=== PATIENT | female | born 1960 | race Caucasian/White ===

== ENCOUNTER 2021-01-07 14:13 | Inpatient (IN) ==
[2021-01-07] MEDS ORDERED: 0.9 % Sodium Chloride 500 ML IVC ONE (14:21)
[2021-01-07] MEDS ORDERED: 0.9 % Sodium Chloride 1,000 ML IVC SCH ×3 (14:30→18:53)
[2021-01-07 14:41] LABS: Basophils # 0.1 K/mcL (0.0-0.2); Basophils % 0.5 %; Eosinophils % 0.2 %; Hematocrit 33.4 % (35.3-44.9); Hemoglobin 11.7 g/dL (11.5-15.4); Immature Granulocytes % 1.9 % (0-4); Lymphocytes # 1.2 K/mcL (0.6-4.6); Lymphocytes % 7.4 %; Mean Corpuscular Hemoglobin 34.8 pg (28.0-33.3); Mean Corpuscular Volume 99.4 fL (83.0-100.0); Mean Platelet Volume 8.5 fL (9.4-12.4); Monocytes # 1.5 K/mcL (0.0-1.3); Monocytes % 9.4 %; Neutrophils # 12.5 K/mcL (1.6-8.9); Platelet Count 153 K/mcL (140-400); Red Blood Count 3.36 M/mcL (3.82-4.97); Red Cell Distribution Width 13.9 % (11.5-14.5); Segmented Neutrophils % 80.6 %; White Blood Count 15.5 K/mcL (4.3-11.1)
[2021-01-07 14:49] LABS: INR 1.6
[2021-01-07] MEDS ORDERED: Lactulose Oral Soln 20 GM/30 ML UDC PO ONE ×2 (14:49→16:00)
[2021-01-07 14:52] LABS: Activated Partial Thrombo Time 39.8 Seconds (26.0-36.0)
[2021-01-07 15:00] LABS: Albumin 3.5 g/dL (3.5-5.7); Albumin/Globulin Ratio 0.9 (1.1-2.2); Bilirubin,Direct 3.8 mg/dL (0.0-0.2); Bilirubin,Indirect 7.1 mg/dL (0.0-1.0); Bilirubin,Total 10.9 mg/dL (0.3-1.0); Calcium 9.6 mg/dL (8.6-10.3); Globulin 3.9 g/dL (2.4-3.5); Magnesium 1.8 mg/dL (1.6-2.6); Potassium 4.5 mEq/L (3.5-5.1); Total Protein 7.4 g/dL (6.4-8.9)
[2021-01-07] MEDS ORDERED: Ondansetron 4 MG/2 ML VIAL IVP ONE (15:37)
[2021-01-07] MEDS ORDERED: Fluticasone Propionate Nasal 50 MCG/SPRAY BOTTLE NS PRN (15:39)
[2021-01-07] MEDS ORDERED: *HR* Glimepiride 2 MG TABLET PO PRN (15:39)
[2021-01-07] MEDS ORDERED: *HR* Dextrose 50 % in Water (Syg) 50 ML SYRINGE IVP PRN (16:05)
[2021-01-07] MEDS ORDERED: Dextrose Gel 15 GM/37.5 ML TUBE PO PRN ×2 (16:05)
[2021-01-07] MEDS ORDERED: D5% in Water 1,000 ML IVC PRN (16:05)
[2021-01-07] MEDS ORDERED: Ondansetron 4 MG/2 ML VIAL IVP PRN (16:13)
[2021-01-07] MEDS: Insulin LISPRO 300 UNITS/3 ML VIAL SUBQ SCH ×2 (20:32→21:49)
[2021-01-07] MEDS: (Bethanechol Chloride [Urecholine] 5 MG Tablet) PO SCH (20:56)
[2021-01-07] MEDS: Apremilast [Otezla] 30 MG Tablet PO SCH (20:56)
[2021-01-08 06:49] LABS: Basophils # 0.1 K/mcL (0.0-0.2); Basophils % 0.6 %; Eosinophils # 0.2 K/mcL (0.0-0.6); Eosinophils % 1.1 %; Hematocrit 27.8 % (35.3-44.9); Hemoglobin 9.8 g/dL (11.5-15.4); Immature Granulocytes % 1.5 % (0-4); Lymphocytes # 1.5 K/mcL (0.6-4.6); Lymphocytes % 10.3 %; Mean Corpuscular HGB Conc 35.3 g/dL (31.6-35.5); Mean Corpuscular Volume 99.3 fL (83.0-100.0); Mean Platelet Volume 8.4 fL (9.4-12.4); Monocytes # 1.8 K/mcL (0.0-1.3); Monocytes % 12.6 %; Platelet Count 116 K/mcL (140-400); Red Cell Distribution Width 13.8 % (11.5-14.5); Segmented Neutrophils % 73.9 %; White Blood Count 14.4 K/mcL (4.3-11.1)
[2021-01-08 06:51] LABS: Neutrophils # 10.6 K/mcL (1.6-8.9)
[2021-01-08 06:59] LABS: INR 1.7; Prothrombin Time 19.2 Seconds (9.4-12.1)
[2021-01-08 07:08] LABS: Calcium 8.9 mg/dL (8.6-10.3); Potassium 4.4 mEq/L (3.5-5.1)
[2021-01-08] MEDS ORDERED: Lactulose Oral Soln 20 GM/30 ML UDC PO SCH (09:00)
[2021-01-08] MEDS: (Calcifediol [Rayaldee] 30 MCG Cap.Sa.24h) PO SCH (09:10)
[2021-01-08] MEDS: Insulin LISPRO 300 UNITS/3 ML VIAL SUBQ SCH ×4 (09:10→21:04)
[2021-01-08] MEDS: Apremilast [Otezla] 30 MG Tablet PO SCH ×2 (09:10→20:56)
[2021-01-08] MEDS: (Bethanechol Chloride [Urecholine] 5 MG Tablet) PO SCH ×3 (09:10→20:56)
[2021-01-08] MEDS ORDERED: Ondansetron 4 MG/2 ML VIAL IVP PRN (09:38)
[2021-01-08] MEDS ORDERED: hydrALAZINE 25 MG TABLET PO PRN (10:40)
[2021-01-08 11:19] LABS: Albumin/Globulin Ratio 0.9 (1.1-2.2); Bilirubin,Direct 3.2 mg/dL (0.0-0.2); Bilirubin,Indirect 4.9 mg/dL (0.0-1.0); Bilirubin,Total 8.1 mg/dL (0.3-1.0); Globulin 3.2 g/dL (2.4-3.5); Total Protein 6.2 g/dL (6.4-8.9)
[2021-01-08] MEDS: Lactulose Oral Soln 20 GM/30 ML UDC PO SCH ×2 (16:18→20:59)
[2021-01-09 03:54] LABS: Basophils # 0.1 K/mcL (0.0-0.2); Basophils % 0.7 %; Eosinophils # 0.1 K/mcL (0.0-0.6); Eosinophils % 0.8 %; Hematocrit 31.2 % (35.3-44.9); Hemoglobin 10.7 g/dL (11.5-15.4); Immature Granulocytes % 1.4 % (0-4); Lymphocytes # 1.7 K/mcL (0.6-4.6); Lymphocytes % 9.9 %; Mean Corpuscular HGB Conc 34.3 g/dL (31.6-35.5); Mean Platelet Volume 9.4 fL (9.4-12.4); Monocytes # 1.7 K/mcL (0.0-1.3); Monocytes % 10.2 %; Platelet Count 112 K/mcL (140-400); Red Blood Count 3.06 M/mcL (3.82-4.97); White Blood Count 16.9 K/mcL (4.3-11.1)
[2021-01-09 05:03] LABS: Albumin 3.1 g/dL (3.5-5.7); Albumin/Globulin Ratio 0.9 (1.1-2.2); Bilirubin,Total 7.8 mg/dL (0.3-1.0); Calcium 9.1 mg/dL (8.6-10.3); Globulin 3.4 g/dL (2.4-3.5); Potassium 5.2 mEq/L (3.5-5.1); Total Protein 6.5 g/dL (6.4-8.9)
[2021-01-09] MEDS ORDERED: SODIUM ZIRCONIUM CYCLOSILICATE 5 GM POWD.PACK PO ONE (06:25)
[2021-01-09] MEDS: Lactulose Oral Soln 20 GM/30 ML UDC PO SCH ×3 (07:54→21:09)
[2021-01-09] MEDS: (Calcifediol [Rayaldee] 30 MCG Cap.Sa.24h) PO SCH (07:55)
[2021-01-09] MEDS: (Bethanechol Chloride [Urecholine] 5 MG Tablet) PO SCH ×3 (07:55→21:10)
[2021-01-09] MEDS: Apremilast [Otezla] 30 MG Tablet PO SCH ×2 (07:55→21:10)
[2021-01-09] MEDS: Insulin LISPRO 300 UNITS/3 ML VIAL SUBQ SCH ×4 (07:57→21:10)
[2021-01-09 09:08] LABS: INR 1.7
[2021-01-09 09:35] LABS: Thyroid Stimulating Hormone 1.767 mcIU/mL (0.340-5.600)
[2021-01-10 07:24] LABS: Basophils # 0.1 K/mcL (0.0-0.2); Basophils % 0.9 %; Eosinophils # 0.2 K/mcL (0.0-0.6); Eosinophils % 1.7 %; Hematocrit 28.4 % (35.3-44.9); Hemoglobin 9.6 g/dL (11.5-15.4); Immature Granulocytes % 1.5 % (0-4); Lymphocytes # 1.9 K/mcL (0.6-4.6); Mean Corpuscular HGB Conc 33.8 g/dL (31.6-35.5); Mean Corpuscular Hemoglobin 34.5 pg (28.0-33.3); Mean Corpuscular Volume 102.2 fL (83.0-100.0); Mean Platelet Volume 8.7 fL (9.4-12.4); Monocytes # 1.6 K/mcL (0.0-1.3); Monocytes % 11.3 %; Platelet Count 114 K/mcL (140-400); Red Blood Count 2.78 M/mcL (3.82-4.97); Red Cell Distribution Width 14.1 % (11.5-14.5); Segmented Neutrophils % 70.6 %; White Blood Count 13.8 K/mcL (4.3-11.1)
[2021-01-10 07:29] LABS: Neutrophils # 9.7 K/mcL (1.6-8.9)
[2021-01-10] MEDS: Lactulose Oral Soln 20 GM/30 ML UDC PO SCH ×3 (07:46→21:40)
[2021-01-10] MEDS: (Bethanechol Chloride [Urecholine] 5 MG Tablet) PO SCH ×3 (07:46→21:36)
[2021-01-10] MEDS: Apremilast [Otezla] 30 MG Tablet PO SCH ×2 (07:46→21:36)
[2021-01-10] MEDS: (Calcifediol [Rayaldee] 30 MCG Cap.Sa.24h) PO SCH (07:46)
[2021-01-10] MEDS: Insulin LISPRO 300 UNITS/3 ML VIAL SUBQ SCH ×4 (07:47→20:37)
[2021-01-10 07:57] LABS: Albumin 2.8 g/dL (3.5-5.7); Albumin/Globulin Ratio 0.9 (1.1-2.2); Bilirubin,Total 7.5 mg/dL (0.3-1.0); Calcium 8.8 mg/dL (8.6-10.3); Globulin 3.1 g/dL (2.4-3.5); Potassium 4.6 mEq/L (3.5-5.1); Total Protein 5.9 g/dL (6.4-8.9)
[2021-01-11 07:03] VITALS: BP 118/73; PULSE 94; RESP 17; TEMP 98.1; O2SAT 100
[2021-01-11 07:23] LABS: Basophils # 0.2 K/mcL (0.0-0.2); Basophils % 1.2 %; Eosinophils # 0.2 K/mcL (0.0-0.6); Eosinophils % 1.7 %; Hematocrit 29.2 % (35.3-44.9); Hemoglobin 9.8 g/dL (11.5-15.4); Immature Granulocytes % 1.9 % (0-4); Lymphocytes # 1.7 K/mcL (0.6-4.6); Lymphocytes % 12.5 %; Mean Corpuscular HGB Conc 33.6 g/dL (31.6-35.5); Mean Corpuscular Hemoglobin 34.5 pg (28.0-33.3); Mean Corpuscular Volume 102.8 fL (83.0-100.0); Mean Platelet Volume 8.9 fL (9.4-12.4); Monocytes # 1.6 K/mcL (0.0-1.3); Monocytes % 11.5 %; Neutrophils # 9.9 K/mcL (1.6-8.9); Platelet Count 115 K/mcL (140-400); Red Blood Count 2.84 M/mcL (3.82-4.97); Red Cell Distribution Width 14.1 % (11.5-14.5); Segmented Neutrophils % 71.2 %; White Blood Count 13.9 K/mcL (4.3-11.1)
[2021-01-11 07:41] LABS: Albumin 2.9 g/dL (3.5-5.7); Albumin/Globulin Ratio 0.9 (1.1-2.2); Bilirubin,Total 7.2 mg/dL (0.3-1.0); Calcium 8.8 mg/dL (8.6-10.3); Globulin 3.2 g/dL (2.4-3.5); Potassium 4.6 mEq/L (3.5-5.1); Total Protein 6.1 g/dL (6.4-8.9)
[2021-01-11] MEDS: Lactulose Oral Soln 20 GM/30 ML UDC PO SCH (07:57)
[2021-01-11] MEDS: Apremilast [Otezla] 30 MG Tablet PO SCH (07:58)
[2021-01-11] MEDS: (Calcifediol [Rayaldee] 30 MCG Cap.Sa.24h) PO SCH (07:58)
[2021-01-11] MEDS: (Bethanechol Chloride [Urecholine] 5 MG Tablet) PO SCH (07:58)
[2021-01-11] MEDS: Insulin LISPRO 300 UNITS/3 ML VIAL SUBQ SCH (09:35)
== END 2021-01-11 11:57 | disposition home or self-care (01) | DRG 641 ==
LOC: INPPIK 14:13 → EMEROOPIK 14:13 → OBSVTOIN 19:05 → INPPIK 20:26
PROVIDERS: ADMIT Internal Medicine; ATTEND Internal Medicine

== ENCOUNTER 2021-05-25 17:08 | Observation (INO) ==
[2021-05-25] MEDS ORDERED: 0.9 % Sodium Chloride 1,000 ML IVC SCH (17:30)
[2021-05-25 17:59] LABS: Basophils # 0.1 K/mcL (0.0-0.2); Basophils % 0.8 %; Eosinophils # 0.2 K/mcL (0.0-0.6); Eosinophils % 1.2 %; Hematocrit 26.2 % (35.3-44.9); Hemoglobin 8.9 g/dL (11.5-15.4); Immature Granulocytes % 2.7 % (0-4); Lymphocytes # 1.9 K/mcL (0.6-4.6); Lymphocytes % 12.7 %; Mean Corpuscular Hemoglobin 31.4 pg (28.0-33.3); Mean Corpuscular Volume 92.6 fL (83.0-100.0); Mean Platelet Volume 8.4 fL (9.4-12.4); Monocytes % 13.3 %; Neutrophils # 10.2 K/mcL (1.6-8.9); Platelet Count 136 K/mcL (140-400); Red Blood Count 2.83 M/mcL (3.82-4.97); Red Cell Distribution Width 14.6 % (11.5-14.5); Segmented Neutrophils % 69.3 %; White Blood Count 14.7 K/mcL (4.3-11.1)
[2021-05-25 18:13] LABS: INR 1.7; Prothrombin Time 18.7 Seconds (9.4-12.1)
[2021-05-25 18:15] LABS: Activated Partial Thrombo Time 37.6 Seconds (26.0-36.0); Bilirubin,Indirect 4.8 mg/dL (0.0-1.0); Bilirubin,Total 7.8 mg/dL (0.3-1.0); Calcium 8.9 mg/dL (8.6-10.3); Globulin 3.1 g/dL (2.4-3.5); Potassium 4.8 mEq/L (3.5-5.1); Total Protein 6.1 g/dL (6.4-8.9)
[2021-05-25] MEDS ORDERED: hydrALAZINE 25 MG TABLET PO PRN (18:32)
[2021-05-25] MEDS ORDERED: Naloxone 0.4 MG/ML INJ IVP PRN (18:32)
[2021-05-25] MEDS ORDERED: Fluticasone Propionate Nasal 50 MCG/SPRAY BOTTLE NS PRN (18:32)
[2021-05-25] MEDS: Lactulose Oral Soln 20 GM/30 ML UDC PO SCH (22:55)
[2021-05-26 02:20] VITALS: TEMP 97.9
[2021-05-26 06:38] LABS: Basophils # 0.1 K/mcL (0.0-0.2); Eosinophils # 0.2 K/mcL (0.0-0.6); Eosinophils % 1.9 %; Hematocrit 22.8 % (35.3-44.9); Hemoglobin 7.6 g/dL (11.5-15.4); Immature Granulocytes % 2.3 % (0-4); Lymphocytes # 2.1 K/mcL (0.6-4.6); Lymphocytes % 16.7 %; Mean Corpuscular HGB Conc 33.3 g/dL (31.6-35.5); Mean Corpuscular Hemoglobin 30.9 pg (28.0-33.3); Mean Corpuscular Volume 92.7 fL (83.0-100.0); Mean Platelet Volume 8.5 fL (9.4-12.4); Monocytes # 1.8 K/mcL (0.0-1.3); Monocytes % 14.6 %; Platelet Count 103 K/mcL (140-400); Red Blood Count 2.46 M/mcL (3.82-4.97); Red Cell Distribution Width 14.6 % (11.5-14.5); Segmented Neutrophils % 63.5 %; White Blood Count 12.5 K/mcL (4.3-11.1)
[2021-05-26 06:54] LABS: Neutrophils # 7.9 K/mcL (1.6-8.9)
[2021-05-26 07:04] VITALS: BP 114/71; PULSE 81; RESP 16; O2SAT 99
[2021-05-26 07:05] LABS: Calcium 8.2 mg/dL (8.6-10.3); Potassium 4.8 mEq/L (3.5-5.1)
[2021-05-26] MEDS ORDERED: 0.9 % Sodium Chloride 1,000 ML IVC SCH (09:18)
[2021-05-26] MEDS: Lactulose Oral Soln 20 GM/30 ML UDC PO SCH (09:35)
[2021-05-26] MEDS ORDERED: Naloxone 0.4 MG/ML INJ IVP PRN (11:08)
== END 2021-05-26 11:02 | disposition home or self-care (01) ==
LOC: SUPCPDRO → INPPIK 17:08 → EMEROOPIK 17:08 → INPPIK 21:05
PROVIDERS: ADMIT Internal Medicine; ATTEND Internal Medicine

== ENCOUNTER 2021-07-02 06:52 | Observation (INO) ==
[2021-07-02] MEDS ORDERED: 0.9 % Sodium Chloride 1,000 ML IV ONE ×2 (07:25→16:38)
[2021-07-02] MEDS ORDERED: Albumin 25% 25gram/100mL 25 GM/100 ML IV.SOLN IVPB ONE (07:51)
[2021-07-02] MEDS ORDERED: Lactulose Oral Soln 20 GM/30 ML UDC PO ONE (07:52)
[2021-07-02 08:07] LABS: Basophils # 0.1 K/mcL (0.0-0.2); Basophils % 0.4 %; Eosinophils % 0.3 %; Hematocrit 19.4 % (35.3-44.9); Hemoglobin 6.5 g/dL (11.5-15.4); Immature Granulocytes % 3.3 % (0-4); Lymphocytes % 6.6 %; Mean Corpuscular HGB Conc 33.5 g/dL (31.6-35.5); Mean Corpuscular Hemoglobin 32.3 pg (28.0-33.3); Mean Corpuscular Volume 96.5 fL (83.0-100.0); Mean Platelet Volume 8.4 fL (9.4-12.4); Monocytes # 2.6 K/mcL (0.0-1.3); Monocytes % 17.6 %; Neutrophils # 10.5 K/mcL (1.6-8.9); Platelet Count 121 K/mcL (140-400); Red Blood Count 2.01 M/mcL (3.82-4.97); Red Cell Distribution Width 17.5 % (11.5-14.5); Segmented Neutrophils % 71.8 %; White Blood Count 14.6 K/mcL (4.3-11.1)
[2021-07-02 08:20] LABS: Albumin 2.8 g/dL (3.5-5.7); Albumin/Globulin Ratio 1.1 (1.1-2.2); Bilirubin,Total 11.6 mg/dL (0.3-1.0); Calcium 8.9 mg/dL (8.6-10.3); Globulin 2.5 g/dL (2.4-3.5); Potassium 4.2 mEq/L (3.5-5.1); Total Protein 5.3 g/dL (6.4-8.9)
[2021-07-02 08:21] LABS: Magnesium 2.2 mg/dL (1.6-2.6)
[2021-07-02] MEDS ORDERED: 0.9 % Sodium Chloride 250 ML IVC ONE (11:53)
[2021-07-02 15:45] VITALS: PULSE 85; TEMP 98.5
[2021-07-02] MEDS ORDERED: Naloxone 0.4 MG/ML INJ IVP PRN ×2 (15:56)
[2021-07-02 17:14] LABS: Hematocrit 21.7 % (35.3-44.9); Hemoglobin 7.3 g/dL (11.5-15.4)
[2021-07-02] MEDS ORDERED: Ondansetron ODT 4 MG TAB.RAPDIS SL PRN (18:00)
[2021-07-02] MEDS ORDERED: Lactulose Oral Soln 20 GM/30 ML UDC PO SCH (21:00)
[2021-07-02 21:08] VITALS: BP 89/52; RESP 16; O2SAT 98
[2021-07-03] MEDS ORDERED: Cholecalciferol (D-3) 1,000 UNIT (25MCG) TABLET PO SCH (09:00)
== END 2021-07-02 21:35 | disposition short-term general hospital (02) ==
LOC: INPPIK 06:52 → EMEROOPIK 06:52 → INPPIK 15:24
PROVIDERS: ADMIT Internal Medicine; ATTEND Internal Medicine